=== PATIENT | male | born 2000 | race Caucasian/White ===

== ENCOUNTER → 2025-08-14 | Outpatient (CLI) | payer OTHER ==
[~2025-08-14] MED LIST: ISOVUE-370 76% 100 ML VIAL ONE; PROHANCE 279.3MG/ML 15ML VIAL ONE
== END ==
LOC: M PLAIMG 14:24
PROVIDERS: ATTEND Physician Assistant
DX: C41.4 Malignant neoplasm of pelvic bones, sacrum and coccyx (principal)

== ENCOUNTER → 2025-08-31 | Outpatient (CLI) | payer OTHER | LOC: M RAD 11:05 → EDUNIT# 11:30 | PROVIDERS: ATTEND Physician Assistant | DX: I73.00 Raynaud's syndrome without gangrene (principal) ==